=== PATIENT | male | born 1990 ===

== ENCOUNTER 2017-07-13 09:50 | Emergency (ER) | payer SELFPAY ==
[~2017-07-13] VITALS: Ht 180.3 cm; Wt 88.3 kg
[2017-07-13 10:21] VITALS: BP 170/87
== END 2017-07-13 12:42 | disposition left against medical advice (07) ==
LOC: EME 09:50
DX: Z53.21 Procedure and treatment not carried out due to patient leaving prior to being seen by health care provider (principal)
CPT/HCPCS: 81003